=== PATIENT | female | born 1950 | race African-American/Black ===

== ENCOUNTER 2018-05-03 11:53 | Inpatient (IN) | payer BC, OTHER ==
[~2018-05-03] VITALS: Ht 170.2 cm; Wt 51.3 kg
[2018-05-03] MEDS ORDERED: NITROGLYCERIN 0.4MG TABLET SL SL PRN ×2 (13:15→16:15)
[2018-05-03] MEDS ORDERED: ASPIRIN 81MG TABLET PO ONE (13:15)
[2018-05-03 13:22] LABS: BASOPHILS % 0.7 % (0.0-2.0); EOSINOPHILS % 0.5 % (0.0-5.0); HEMATOCRIT. 41.2 % (36.0-48.0); HEMOGLOBIN. 14.1 g/dL (12.0-16.0); MEAN CORPUSCULAR HEMOGLOBIN 31.5 pg (28.0-32.0); MEAN CORPUSCULAR VOLUME 91.8 fL (81.0-99.0); MEAN PLATELET VOLUME 8.4 fl (7.4-10.4); MONOCYTES % 11.4 % (2.0-8.0); NEUTROPHILS % 45.4 % (40.0-76.0); PLATELET 193 x1000/uL (130-400); RED BLOOD CELL COUNT 4.49 mill/uL (4.2-5.4); RED CELL DISTRIBUTION WIDTH 13.6 % (11.6-14.6)
[2018-05-03 13:29] LABS: CHLORIDE 103 mEq/L (98-107)
[2018-05-03 13:35] LABS: D-DIMER 0.21 mg/L FEU (<0.50); PARTIAL THROMBOPLASTIN TIME 26.2 sec (23.4-31.0); PROTHROMBIN TIME 10.5 sec (9.1-11.1)
[2018-05-03 16:00] VITALS: BP 156/63
[2018-05-03] MEDS ORDERED: ONDANSETRON HCL 4MG/2ML INJ IV PRN (16:15)
[2018-05-03] MEDS ORDERED: IPRATROPIUM/ALBUTEROL 0.5-3(2.5)MG/3ML NEB INH PRN (16:15)
[2018-05-03] MEDS ORDERED: ACETAMINOPHEN 325MG TABLET PO PRN (16:15)
[2018-05-03] MEDS ORDERED: GUAIFENESIN 200MG/10ML SUGAR FREE UDC PO PRN (16:15)
[2018-05-03] MEDS ORDERED: TRAMADOL 50MG TABLET PO PRN (16:15)
[2018-05-03] MEDS ORDERED: MAGNESIUM/ALUMINUM HYDROXIDE/SIMETHICONE 30ML UDC PO PRN (16:15)
[2018-05-03] MEDS ORDERED: CLONIDINE 0.1MG TABLET PO PRN (16:15)
[2018-05-03] MEDS ORDERED: MORPHINE SULFATE 4 MG/ML CPJ (NOT FOR IM USE) IV PRN (16:15)
[2018-05-03] MEDS ORDERED: DOCUSATE SODIUM 100MG CAPSULE PO PRN (16:15)
[2018-05-03 18:05] VITALS: BP 156/63
[2018-05-03 20:00] VITALS: BP 140/62
[2018-05-03] MEDS: FAMOTIDINE 20MG TABLET PO SCH (20:33)
[2018-05-03] MEDS: METOPROLOL TARTRATE 25MG TABLET PO SCH (20:33)
[2018-05-03] MEDS: ZOLPIDEM TARTRATE 5MG TABLET PO PRN (20:33)
[2018-05-03] MEDS: ENOXAPARIN 40MG/0.4ML SYR SUBCUT SCH (20:34)
[2018-05-03] MEDS ORDERED: OMEP20TA2 MT (22:21)
[2018-05-03] MEDS ORDERED: AMLO5TAB88 MT (22:21)
[2018-05-03] MEDS ORDERED: HYDR25TA MT (22:21)
[2018-05-03] MEDS ORDERED: BUPR-84 MT (22:21)
[2018-05-03] MEDS ORDERED: ALEN70TA46 MT (22:21)
[2018-05-03] MEDS ORDERED: POTA10CA42 MT (22:23)
[2018-05-03 23:33] LABS: *AMPHETAMINES SCREEN URINE NEGATIVE (NEGATIVE); *BARBITURATES SCREEN URINE NEGATIVE (NEGATIVE)
[2018-05-03 23:34] LABS: *BENZODIAZEPINES SCREEN URINE NEGATIVE (NEGATIVE); *COCAINE SCREEN URINE NEGATIVE (NEGATIVE); CANNABINOID URINE SCREEN PRESUMTIVE POSITIVE (NEGATIVE); METHADONE URINE SCREEN NEGATIVE (NEGATIVE); OPIATES URINE SCREEN NEGATIVE (NEGATIVE); PHENCYCLIDINE URINE SCREEN NEGATIVE (NEGATIVE)
[2018-05-03 23:43] LABS: CREATINE KINASE 82 IU/L (26-192)
[2018-05-03 23:44] LABS: CREATINE KINASE MB FRACTION < 1.0 ng/mL (0.5-3.6)
[2018-05-04] VITALS (7 sets, daily range): BP systolic 108–138; BP diastolic 57–67
[2018-05-04 07:20] LABS: CREATINE KINASE 84 IU/L (26-192)
[2018-05-04 07:25] LABS: CREATINE KINASE MB FRACTION < 1.0 ng/mL (0.5-3.6)
[2018-05-04] MEDS: ASPIRIN 325MG EC TABLET PO SCH (09:44)
[2018-05-04] MEDS: METOPROLOL TARTRATE 25MG TABLET PO SCH ×2 (09:45→20:41)
[2018-05-04] MEDS: FAMOTIDINE 20MG TABLET PO SCH (20:40)
[2018-05-04] MEDS: ENOXAPARIN 40MG/0.4ML SYR SUBCUT SCH (20:40)
[2018-05-05] VITALS: BP 130/63
[2018-05-05] MEDS: ZOLPIDEM TARTRATE 5MG TABLET PO PRN (00:48)
[2018-05-05 04:00] VITALS: BP 132/63
[2018-05-05 07:15] LABS: BASOPHILS % 0.7 % (0.0-2.0); HEMATOCRIT. 41.2 % (36.0-48.0); LYMPHOCYTES % 58.7 % (20.0-50.0); MEAN CORPUSCULAR HEMOGLOBIN 31.5 pg (28.0-32.0); MEAN CORPUSCULAR VOLUME 92.6 fL (81.0-99.0); MEAN PLATELET VOLUME 8.6 fl (7.4-10.4); NEUTROPHILS % 26.6 % (40.0-76.0); PLATELET 192 x1000/uL (130-400); RED BLOOD CELL COUNT 4.46 mill/uL (4.2-5.4)
[2018-05-05 07:39] LABS: CHLORIDE 104 mEq/L (98-107)
[2018-05-05 07:47] LABS: CREATINE KINASE 71 IU/L (26-192); CREATINE KINASE MB FRACTION < 1.0 ng/mL (0.5-3.6)
[2018-05-05 07:48] LABS: HDL CHOLESTEROL 53 mg/dL (40-59); LDL CHOLESTEROL 113 mg/dL (5-100)
[2018-05-05 08:00] VITALS: BP 128/58
[2018-05-05] MEDS: METOPROLOL TARTRATE 25MG TABLET PO SCH (08:15)
[2018-05-05] MEDS: ASPIRIN 325MG EC TABLET PO SCH (08:15)
[2018-05-05 12:00] VITALS: BP 143/68
[2018-05-05 12:42] VITALS: BP 143/68
== END 2018-05-05 14:15 | disposition home or self-care (01) | DRG 313 ==
LOC: ER 12:09 → 5WST 15:37 → EDBEDREQTM 15:40 → EDBEDREQ 15:40 → ENRESERV 15:45 → EDBEDREQ 15:47 → EDBEDREQTM 15:47 → SUPCPDRO 15:54
PROVIDERS: ADMIT Internal Medicine; ATTEND Internal Medicine
DX: R07.89 Other chest pain (principal); F17.210 Nicotine dependence, cigarettes, uncomplicated; H40.9 Unspecified glaucoma; R00.1 Bradycardia, unspecified; F12.10 Cannabis abuse, uncomplicated; I10 Essential (primary) hypertension; M81.0 Age-related osteoporosis without current pathological fracture; Z79.899 Other long term (current) drug therapy
CPT/HCPCS: 36415; 71045; 80061; 80305; 82550; 82553; 83036; 83735; 83880; 84443; 84484; 85379; 93005; 93306; 93970; 99285; J1650